=== PATIENT | female | born 1970 | race African-American/Black ===

== ENCOUNTER 2020-07-30 12:35 | Emergency (ER) | payer SELFPAY ==
[~2020-07-30] VITALS: Ht 162.6 cm; Wt 117.0 kg
[2020-07-30] MEDS ORDERED: HYDROMORPHONE 1 MG/1 ML DISP.SYRIN IM ONE (13:00)
[2020-07-30] MEDS ORDERED: HYDROMORPHONE 1 MG/1 ML DISP.SYRIN ONE (13:21)
[2020-07-30] MEDS ORDERED: DOCU-141 PO (14:35)
[2020-07-30] MEDS ORDERED: HYDR-3980 PO (14:35)
[2020-07-30] MEDS ORDERED: OXYCODONE/APAP 5-325 MG TABLET PO ONE (14:45)
[2020-07-30] MEDS ORDERED: ONDANSETRON ODT 4 MG TAB.RAPDIS SL ONE (14:45)
--- NOTE | 2020-07-30 15:00 | NUR ---
Patient discharged to home in stable condition. Written and verbal after care instructions given. Patient verbalizes understanding of instructions. Stressed follow up or return to ER for worsening s/s.pt sister to take the pt home.
[2020-07-30 15:01] VITALS: BP 109/75
[2020-07-30] MEDS ORDERED: OXYCODONE/APAP 5-325 MG TABLET ONE (15:02)
== END 2020-07-30 15:02 | disposition home or self-care (01) ==
LOC: ER 12:35
DX: S89.91XA Unspecified injury of right lower leg, initial encounter (principal); W19.XXXA Unspecified fall, initial encounter; Y93.89 Activity, other specified; Y92.89 Other specified places as the place of occurrence of the external cause; E66.01 Morbid (severe) obesity due to excess calories; Z68.41 Body mass index [BMI] 40.0-44.9, adult; Z88.0 Allergy status to penicillin; Z88.1 Allergy status to other antibiotic agents; Z91.030 Bee allergy status; E11.9 Type 2 diabetes mellitus without complications
CPT/HCPCS: 29505; 73564; 96372; 99283; J1170; A4663

== ENCOUNTER 2020-08-27 17:36 | Emergency (ER) | payer OTHER ==
[~2020-08-27] VITALS: Ht 162.6 cm; Wt 113.4 kg
[~2020-08-27 17:36] MED LIST: DOCU-141 PO; HYDR-3980 PO
[2020-08-27] MEDS ORDERED: APIX2.5T PO (18:28)
[2020-08-27] MEDS ORDERED: LISI40TA13 PO (18:28)
[2020-08-27] MEDS ORDERED: METO-357 PO (18:28)
[2020-08-27] MEDS ORDERED: FAMO-132 PO (18:30)
[2020-08-27] MEDS ORDERED: METF-440 PO (18:30)
[2020-08-27] MEDS ORDERED: HYDR-4354 PO (18:30)
[2020-08-27] MEDS ORDERED: IBUP-1953 PO (18:31)
[2020-08-27] MEDS ORDERED: GABA-532 PO (18:31)
[2020-08-27] MEDS ORDERED: CETI-90 PO (18:31)
[2020-08-27] MEDS ORDERED: WATER PILL PO (18:32)
--- NOTE | 2020-08-27 18:49 | NUR ---
pending MD evaluation, endorsed to MIGUEL Brown
--- NOTE | 2020-08-27 19:10 | NUR ---
ERMD at bedside for evaluation.
[2020-08-27] MEDS ORDERED: HYDROCODONE/APAP 10-325 MG TABLET PO ONE (19:30)
[2020-08-27] MEDS ORDERED: HYDROCODONE/APAP 10-325 MG TABLET ONE (20:00)
[2020-08-27] MEDS ORDERED: HYDR-3980 PO (20:54)
[2020-08-27 20:55] VITALS: BP 141/79
--- NOTE | 2020-08-27 20:55 | NUR ---
Patient discharged to home in stable condition. Written and verbal after care instructions given. Patient verbalizes understanding of instructions. Stressed follow up or return to ER for worsening s/s. Patient ambulated with steady gait.
== END 2020-08-27 20:56 | disposition home or self-care (01) ==
LOC: ER 17:36
DX: M25.561 Pain in right knee (principal); M25.551 Pain in right hip; Z88.0 Allergy status to penicillin; Z91.030 Bee allergy status; E66.01 Morbid (severe) obesity due to excess calories; Z68.41 Body mass index [BMI] 40.0-44.9, adult; I48.91 Unspecified atrial fibrillation; Z79.01 Long term (current) use of anticoagulants; E11.9 Type 2 diabetes mellitus without complications; Z79.84 Long term (current) use of oral hypoglycemic drugs
CPT/HCPCS: 73502; A4663

== ENCOUNTER 2020-09-27 13:51 | Emergency (ER) | payer MEDICAID, OTHER ==
[~2020-09-27] VITALS: Ht 162.6 cm; Wt 117.0 kg
[~2020-09-27 13:51] MED LIST changes: +APIX2.5T PO; +CETI-90 PO; +FAMO-132 PO; +GABA-532 PO; +HYDR-4354 PO; +IBUP-1953 PO; +LISI40TA13 PO; +METF-440 PO; +METO-357 PO; +WATER PILL PO
[2020-09-27 14:33] LABS: *BILIRUBIN,URIN NEGATIVE (NEGATIVE); *BLOOD, URINE NEGATIVE (NEGATIVE); *COLOR,URINE YELLOW (YELLOW); *KETONES,URINE TRACE (NEGATIVE); LEUKOCYTE ESTERASE ,URINE NEGATIVE (NEGATIVE); NITRITE, URINE NEGATIVE (NEGATIVE); PH,URINE 5.5 (5.0-8.0); UGLUCOSE NEGATIVE (NEGATIVE)
[2020-09-27 14:37] LABS: *CLARITY,URINE SLIGHTLY CLOUDY (CLEAR)
[2020-09-27 14:57] VITALS: BP 148/87
--- NOTE | 2020-09-27 14:57 | NUR ---
Patient discharged to home in stable condition. Written and verbal after care instructions given. Patient verbalizes understanding of instructions. Stressed follow up or return to ER for worsening s/s.
[2020-09-27 15:12] LABS: BACTERIA,URINE NONE SEEN /HPF (NONE SEEN); RBC,URINE 0-3 /HPF (0-3); SQUAMOUS EPITHELIAL CELL,UR FEW /HPF (NONE SEEN); WBC,URINE 0-3 /HPF (0-3)
== END 2020-09-27 14:57 | disposition home or self-care (01) ==
LOC: ER 13:51
DX: E11.65 Type 2 diabetes mellitus with hyperglycemia (principal); Z76.0 Encounter for issue of repeat prescription; E66.01 Morbid (severe) obesity due to excess calories; Z68.41 Body mass index [BMI] 40.0-44.9, adult; Z91.030 Bee allergy status; Z88.0 Allergy status to penicillin; Z79.84 Long term (current) use of oral hypoglycemic drugs; Z79.01 Long term (current) use of anticoagulants; Z79.899 Other long term (current) drug therapy; E11.40 Type 2 diabetes mellitus with diabetic neuropathy, unspecified; K21.9 Gastro-esophageal reflux disease without esophagitis
CPT/HCPCS: A4663

== ENCOUNTER 2020-12-09 17:44 | Emergency (ER) | payer MEDICAID ==
[~2020-12-09] VITALS: Ht 162.6 cm; Wt 117.0 kg
--- NOTE | 2020-12-09 19:00 | NUR ---
Dr. Palencia at bedside for MSE.
--- NOTE | 2020-12-09 19:11 | NUR ---
Xray at bedside.
[2020-12-09] MEDS ORDERED: ONDANSETRON HCL 4 MG TABLET PO ONE (19:15)
[2020-12-09] MEDS ORDERED: KETOROLAC TROMETHAMINE 60 MG INJ IM ONE ×2 (19:15→19:20)
[2020-12-09] MEDS ORDERED: HYDROMORPHONE 1 MG/1 ML DISP.SYRIN IM ONE (19:15)
[2020-12-09] MEDS ORDERED: HYDROMORPHONE 1 MG/1 ML DISP.SYRIN ONE (19:20)
[2020-12-09] MEDS ORDERED: HYDROMORPHONE 2 MG/1 ML DISP.SYRIN ONE (19:20)
[2020-12-09] MEDS ORDERED: ONDANSETRON ODT 4 MG TAB.RAPDIS ONE (19:21)
[2020-12-09] MEDS ORDERED: OXYC-128 PO (20:10)
--- NOTE | 2020-12-09 20:14 | NUR ---
Patient discharged to home in stable condition. Written and verbal after care instructions given. Patient verbalizes understanding of instructions. Stressed follow up or return to ER for worsening s/s. Patient out of ER with steady gait, no acute signs of distress, VSS, all belongings taken, instructed not to drive, will take uber home.
[2020-12-09 20:15] VITALS: BP 155/85
== END 2020-12-09 20:15 | disposition home or self-care (01) ==
LOC: ER 17:50
DX: M25.511 Pain in right shoulder (principal); E66.01 Morbid (severe) obesity due to excess calories; Z68.41 Body mass index [BMI] 40.0-44.9, adult; I10 Essential (primary) hypertension; Z88.0 Allergy status to penicillin; Z88.1 Allergy status to other antibiotic agents; Z91.030 Bee allergy status; E11.40 Type 2 diabetes mellitus with diabetic neuropathy, unspecified; Z79.84 Long term (current) use of oral hypoglycemic drugs
CPT/HCPCS: 71045; 73020; 96372 ×2; 99284; J1170 ×2; J1885; A4663; Q0162

== ENCOUNTER 2021-01-25 21:42 | Emergency (ER) | payer BC, MEDICAID, OTHER ==
[~2021-01-25] VITALS: Ht 162.6 cm; Wt 121.6 kg
[~2021-01-25 21:42] MED LIST changes: +OXYC-128 PO
--- NOTE | 2021-01-26 00:25 | NUR ---
DR. HODGSON AT BEDSIDE, MSE IN PROGRESS.
[2021-01-26 00:56] LABS: HEMATOCRIT 36.8 % (31.2-41.9); MEAN CORPUSCULAR HEMOGLOBIN 30.1 uug (24.7-32.8); MEAN CORPUSCULAR VOLUME 90.5 fL (75.5-95.3); PLATELET COUNT (AUTO) 340 K/uL (179-408)
[2021-01-26 01:03] LABS: CREATININE 0.9 mg/dL (0.6-1.3); POTASSIUM 3.4 mmol/L (3.5-5.1)
[2021-01-26 01:08] LABS: BILIRUBIN,DIRECT 0.1 mg/dL (0.0-0.2); BILIRUBIN,TOTAL 0.4 mg/dL (0.2-1.0); TOTAL PROTEIN, SERUM 7.7 g/dL (6.4-8.2)
--- NOTE | 2021-01-26 01:15 | NUR ---
PT AMBULATED TO ER STEADY GAIT.
[2021-01-26] MEDS: MORPHINE SULFATE 4 MG/1 ML DISP.SYRIN IM ONE (01:25)
[2021-01-26] MEDS ORDERED: MORPHINE SULFATE 4 MG/1 ML DISP.SYRIN ONE (01:30)
[2021-01-26] MEDS ORDERED: SULF1TAB48 PO (03:07)
[2021-01-26] MEDS: POTASSIUM CHLORIDE 20 MEQ TAB.PRT.SR PO ONE (03:21)
--- NOTE | 2021-01-26 03:24 | NUR ---
Patient discharged to home in stable condition. Denies any pain/discomfort upon discharge. Denies any n/v/d. Written and verbal after care instructions given. Patient verbalizes understanding of instructions. Stressed follow up or return to ER for worsening s/s. Steady gait.
[2021-01-26 03:25] VITALS: BP 130/80
[2021-01-26] MEDS ORDERED: POTASSIUM CHLORIDE 20 MEQ TAB.PRT.SR ONE (03:25)
== END 2021-01-26 03:25 | disposition home or self-care (01) ==
LOC: ER 21:42
DX: I88.9 Nonspecific lymphadenitis, unspecified (principal); Z88.0 Allergy status to penicillin; Z91.030 Bee allergy status; Z90.710 Acquired absence of both cervix and uterus; E66.01 Morbid (severe) obesity due to excess calories; Z68.42 Body mass index [BMI] 45.0-49.9, adult; E11.40 Type 2 diabetes mellitus with diabetic neuropathy, unspecified; Z79.84 Long term (current) use of oral hypoglycemic drugs; I48.91 Unspecified atrial fibrillation; Z79.01 Long term (current) use of anticoagulants; K21.9 Gastro-esophageal reflux disease without esophagitis
CPT/HCPCS: 36415; 76536; 80048; 80076; 85025; 96372; 99284; J2270; A4663

== ENCOUNTER 2021-05-03 17:37 | Emergency (ER) | payer BC ==
[~2021-05-03] VITALS: Ht 162.6 cm; Wt 122.5 kg
[~2021-05-03 17:37] MED LIST changes: +SULF1TAB48 PO
[2021-05-03] MEDS ORDERED: CEPH500C2 PO (18:11)
[2021-05-03] MEDS ORDERED: HYDR-4209 PO (18:11)
[2021-05-03 19:04] VITALS: BP 125/88
== END 2021-05-03 18:12 | disposition home or self-care (01) ==
LOC: ER 17:39
DX: I88.9 Nonspecific lymphadenitis, unspecified (principal); Z88.0 Allergy status to penicillin; Z88.1 Allergy status to other antibiotic agents; Z91.030 Bee allergy status; E66.01 Morbid (severe) obesity due to excess calories; Z68.42 Body mass index [BMI] 45.0-49.9, adult; E11.40 Type 2 diabetes mellitus with diabetic neuropathy, unspecified; Z79.01 Long term (current) use of anticoagulants; Z79.84 Long term (current) use of oral hypoglycemic drugs; K21.9 Gastro-esophageal reflux disease without esophagitis
CPT/HCPCS: A4663

== ENCOUNTER 2021-08-16 18:17 | Emergency (ER) | payer BC ==
[~2021-08-16] VITALS: Ht 162.6 cm; Wt 122.5 kg
[~2021-08-16 18:17] MED LIST changes: +CEPH500C2 PO; +HYDR-4209 PO; -IBUP-1953 PO; -OXYC-128 PO; -SULF1TAB48 PO
--- NOTE | 2021-08-16 18:28 | NUR ---
PT IS IN ROOM #1B. DR HILLIARD EVALUATED THE PT.
[2021-08-16 18:37] LABS: *BILIRUBIN,URIN NEGATIVE (NEGATIVE); *CLARITY,URINE CLEAR (CLEAR); *COLOR,URINE YELLOW (YELLOW); *KETONES,URINE NEGATIVE (NEGATIVE); *UROBILINOGEN,URINE 0.2 E.U./dl (NORMAL); LEUKOCYTE ESTERASE ,URINE NEGATIVE (NEGATIVE); NITRITE, URINE NEGATIVE (NEGATIVE); PH,URINE 5.5 (5.0-8.0); UGLUCOSE NEGATIVE (NEGATIVE)
[2021-08-16 18:41] LABS: *BLOOD, URINE TRACE (NEGATIVE)
[2021-08-16 18:56] LABS: *URINE HCG, QUAL NEG (NEGATIVE)
[2021-08-16] MEDS ORDERED: ONDANSETRON ODT 4 MG TAB.RAPDIS SL ONE (19:00)
[2021-08-16] MEDS ORDERED: OXYCODONE/APAP 5-325 MG TABLET PO ONE (19:00)
[2021-08-16] MEDS ORDERED: OXYCODONE/APAP 5-325 MG TABLET ONE (19:15)
[2021-08-16] MEDS ORDERED: ONDANSETRON ODT 4 MG TAB.RAPDIS ONE (19:15)
[2021-08-16 20:23] LABS: BACTERIA,URINE NONE SEEN /HPF (NONE SEEN); MUCUS,URINE FEW /LPF (0-FEW); SQUAMOUS EPITHELIAL CELL,UR FEW /HPF (NONE SEEN); WBC,URINE 0-3 /HPF (0-3)
[2021-08-16] MEDS ORDERED: ONDA4TAB5 PO (20:42)
[2021-08-16] MEDS ORDERED: HYDR-4209 PO (20:42)
--- NOTE | 2021-08-16 20:54 | NUR ---
Patient discharged to home in stable condition. Written and verbal after care instructions given. Patient verbalizes understanding of instructions. Stressed follow up or return to ER for worsening s/s. Patient is a/ox4, NAD noted. Patient is able to walk with steady gait.
[2021-08-16 20:55] VITALS: BP 128/78
== END 2021-08-16 20:56 | disposition home or self-care (01) ==
LOC: ER 18:18
DX: M54.9 Dorsalgia, unspecified (principal); E66.01 Morbid (severe) obesity due to excess calories; Z68.42 Body mass index [BMI] 45.0-49.9, adult; E11.40 Type 2 diabetes mellitus with diabetic neuropathy, unspecified; K21.9 Gastro-esophageal reflux disease without esophagitis; I48.91 Unspecified atrial fibrillation; Z79.84 Long term (current) use of oral hypoglycemic drugs; Z79.01 Long term (current) use of anticoagulants; Z88.1 Allergy status to other antibiotic agents; Z88.0 Allergy status to penicillin; Z90.710 Acquired absence of both cervix and uterus
CPT/HCPCS: 84703; A4663; Q0162

== ENCOUNTER 2021-09-07 15:19 | Emergency (ER) | payer BC ==
[~2021-09-07] VITALS: Ht 162.6 cm; Wt 133.8 kg
[~2021-09-07 15:19] MED LIST changes: +ONDA4TAB5 PO
--- NOTE | 2021-09-07 16:10 | NUR ---
PATIENT WAS MSE BY DR RENTERIA IN ROOM 04B.
--- NOTE | 2021-09-07 17:10 | NUR ---
PATIENT MADE AWARE OF TEST RESULTS BY DR RENTERIA.
[2021-09-07 17:13] VITALS: BP 135/79
== END 2021-09-07 17:14 | disposition home or self-care (01) ==
LOC: ER 15:19
DX: S00.83XA Contusion of other part of head, initial encounter (principal); Y04.8XXA Assault by other bodily force, initial encounter; Y93.F9 Activity, other caregiving; Y92.89 Other specified places as the place of occurrence of the external cause; Y99.0 Civilian activity done for income or pay; E66.01 Morbid (severe) obesity due to excess calories; Z68.43 Body mass index [BMI] 50.0-59.9, adult; E11.40 Type 2 diabetes mellitus with diabetic neuropathy, unspecified; Z88.0 Allergy status to penicillin; Z88.1 Allergy status to other antibiotic agents; Z91.030 Bee allergy status; Z79.01 Long term (current) use of anticoagulants; Z79.84 Long term (current) use of oral hypoglycemic drugs; Z79.899 Other long term (current) drug therapy; I48.91 Unspecified atrial fibrillation; M17.11 Unilateral primary osteoarthritis, right knee
CPT/HCPCS: 70486; A4663

== ENCOUNTER 2022-06-02 16:31 | Emergency (ER) | payer BC ==
[~2022-06-02] VITALS: Ht 162.6 cm; Wt 133.8 kg
[2022-06-02] MEDS ORDERED: HYDROCODONE/APAP 10-325 MG TABLET PO ONE (17:00)
[2022-06-02] MEDS ORDERED: HYDROCODONE/APAP 10-325 MG TABLET ONE (17:42)
[2022-06-02] MEDS ORDERED: TRAM50TA2 PO (17:53)
[2022-06-02 18:34] VITALS: BP 145/79
== END 2022-06-02 18:35 | disposition home or self-care (01) ==
LOC: ER 16:32
DX: S20.221A Contusion of right back wall of thorax, initial encounter (principal); Y04.0XXA Assault by unarmed brawl or fight, initial encounter; Y92.89 Other specified places as the place of occurrence of the external cause; I48.91 Unspecified atrial fibrillation; Z79.01 Long term (current) use of anticoagulants; E66.01 Morbid (severe) obesity due to excess calories; Z68.43 Body mass index [BMI] 50.0-59.9, adult; E11.9 Type 2 diabetes mellitus without complications; Z88.0 Allergy status to penicillin; Z88.1 Allergy status to other antibiotic agents; Z91.030 Bee allergy status; M25.511 Pain in right shoulder
CPT/HCPCS: 73030; A4663

== ENCOUNTER 2024-04-21 23:48 | Emergency (ER) | payer BC ==
[~2024-04-21] VITALS: Ht 162.6 cm; Wt 114.8 kg
[~2024-04-21 23:48] MED LIST changes: +TRAM50TA2 PO
[2024-04-21 23:54] VITALS: O2SAT 97
[2024-04-22] MEDS ORDERED: KETOROLAC TROMETHAMINE 30 MG INJ ONE (00:39)
[2024-04-22] MEDS: HYDROCODONE/APAP 10-325 MG TABLET PO ONE (00:43)
[2024-04-22] MEDS: KETOROLAC TROMETHAMINE 30 MG INJ IM ONE (00:44)
[2024-04-22] MEDS ORDERED: HYDR-3980 PO (01:56)
== END 2024-04-22 02:16 | disposition home or self-care (01) ==
LOC: ER 04-22 00:01
DX: M25.511 Pain in right shoulder (principal); M77.8 Other enthesopathies, not elsewhere classified; E11.9 Type 2 diabetes mellitus without complications; E66.01 Morbid (severe) obesity due to excess calories; I48.91 Unspecified atrial fibrillation; K21.9 Gastro-esophageal reflux disease without esophagitis; Z79.01 Long term (current) use of anticoagulants; Z79.84 Long term (current) use of oral hypoglycemic drugs; Z79.899 Other long term (current) drug therapy; Z90.710 Acquired absence of both cervix and uterus; Z88.0 Allergy status to penicillin; Z88.1 Allergy status to other antibiotic agents; Z88.7 Allergy status to serum and vaccine; Z91.030 Bee allergy status
CPT/HCPCS: 99283; 73020; 96372; J1885; A4606; A4663

== ENCOUNTER 2024-10-31 13:43 | Emergency (ER) | payer BC, OTHER ==
[~2024-10-31] VITALS: Ht 172.7 cm; Wt 121.6 kg
[2024-10-31 13:46] VITALS: BP 142/82
[2024-10-31] MEDS ORDERED: ONDANSETRON ODT 4 MG TAB.RAPDIS ONE (14:54)
[2024-10-31] MEDS ORDERED: KETOROLAC TROMETHAMINE 30 MG INJ ONE (14:54)
[2024-10-31] MEDS ORDERED: HYDROMORPHONE 2 MG/1 ML DISP.SYRIN ONE (14:54)
[2024-10-31] MEDS: ONDANSETRON ODT 4 MG TAB.RAPDIS SL ONE (14:58)
[2024-10-31] MEDS: KETOROLAC TROMETHAMINE 30 MG INJ IM ONE (15:00)
[2024-10-31] MEDS ORDERED: ACET1TAB23 PO (15:00)
[2024-10-31] MEDS: HYDROMORPHONE 1 MG/1 ML DISP.SYRIN IM ONE (15:00)
[2024-10-31 15:22] VITALS: BP 139/88; O2SAT 98
== END 2024-10-31 15:22 | disposition home or self-care (01) ==
LOC: ER 13:43
DX: S60.221A Contusion of right hand, initial encounter (principal); M25.511 Pain in right shoulder; E11.9 Type 2 diabetes mellitus without complications; F19.10 Other psychoactive substance abuse, uncomplicated; Z79.01 Long term (current) use of anticoagulants; Z79.84 Long term (current) use of oral hypoglycemic drugs; Z79.899 Other long term (current) drug therapy; Z86.73 Personal history of transient ischemic attack (TIA), and cerebral infarction without residual deficits; Z88.0 Allergy status to penicillin; Z88.1 Allergy status to other antibiotic agents; Z88.7 Allergy status to serum and vaccine; Z90.710 Acquired absence of both cervix and uterus; Z91.030 Bee allergy status; Y04.0XXA Assault by unarmed brawl or fight, initial encounter; Y93.89 Activity, other specified; Y92.89 Other specified places as the place of occurrence of the external cause; Y99.0 Civilian activity done for income or pay
CPT/HCPCS: 99284; 73020; 73120; 96372 ×2; J1885; J1171; A4606; A4663; Q0162

== ENCOUNTER 2024-11-23 20:17 | Emergency (ER) | payer BC, MEDICAID, OTHER ==
[~2024-11-23] VITALS: Ht 162.6 cm; Wt 117.0 kg
[~2024-11-23 20:17] MED LIST changes: +ACET1TAB23 PO
[2024-11-23 20:19] VITALS: BP 162/104
[2024-11-23] MEDS ORDERED: ONDANSETRON HCL 4 MG TABLET ONE (20:42)
[2024-11-23] MEDS ORDERED: MORPHINE SULFATE 2 MG/1 ML DISP.SYRIN ONE (20:43)
[2024-11-23] MEDS: ONDANSETRON HCL 4 MG TABLET PO ONE (20:49)
[2024-11-23] MEDS: MORPHINE SULFATE 2 MG/1 ML DISP.SYRIN IM ONE (20:49)
[2024-11-23] MEDS ORDERED: SILVER SULFADIAZINE 1% CREAM 50 GM TP ONE (20:51)
[2024-11-23] MEDS: SILVER SULFADIAZINE 1% CREAM 50 GM TP ONE (20:56)
[2024-11-23] MEDS ORDERED: KETO10TA2 PO (21:13)
[2024-11-23] MEDS ORDERED: SILV50CR32 TP (21:15)
[2024-11-23 21:24] VITALS: BP 150/98; TEMP 98; O2SAT 97
== END 2024-11-23 21:24 | disposition home or self-care (01) ==
LOC: ER 20:28
DX: T23.101A Burn of first degree of right hand, unspecified site, initial encounter (principal); E11.9 Type 2 diabetes mellitus without complications; F19.10 Other psychoactive substance abuse, uncomplicated; Z79.01 Long term (current) use of anticoagulants; Z79.84 Long term (current) use of oral hypoglycemic drugs; Z79.899 Other long term (current) drug therapy; Z86.73 Personal history of transient ischemic attack (TIA), and cerebral infarction without residual deficits; Z88.0 Allergy status to penicillin; Z88.1 Allergy status to other antibiotic agents; Z88.7 Allergy status to serum and vaccine; Z90.710 Acquired absence of both cervix and uterus; Z91.030 Bee allergy status; X13.1XXA Other contact with steam and other hot vapors, initial encounter; Y93.89 Activity, other specified; Y92.89 Other specified places as the place of occurrence of the external cause; Y99.8 Other external cause status
CPT/HCPCS: 99283; 16000; 96372; J2270; A4606; A4663; Q0162